=== PATIENT | female | born 1990 | race African-American/Black ===

== ENCOUNTER 2019-03-20 06:00 | Emergency (ER) | payer OTHER ==
[~2019-03-20] VITALS: Ht 165.1 cm; Wt 81.7 kg
[2019-03-20 08:10] VITALS: BP 127/79
[2019-03-20] MEDS ORDERED: IPRATROPIU0.2 MG/1 M INH (08:12)
[2019-03-20] MEDS ORDERED: MOBIC15 MG PO (08:12)
[2019-03-20] MEDS ORDERED: TESSALON PERLE100 MG PO (08:12)
== END 2019-03-20 08:10 | disposition home or self-care (01) ==
LOC: ER 06:00
DX: J45.909 Unspecified asthma, uncomplicated (principal)